=== PATIENT | female | born 1990 ===

== ENCOUNTER 2017-02-14 13:06 | Emergency (ER) | payer MEDICAID ==
[2017-02-14 13:15] VITALS: BP 103/79; PULSE 78; RESP 18; TEMP 98.6; O2SAT 100
--- NOTE | 2017-02-14 14:14 | ED PDOC ---
HPI: Female Pain Time Seen by Provider: 02/14/17 14:04 Chief Complaint (Nursing): Female Genitourinary Chief Complaint (Provider): with bleeding History Per: Patient Additional Complaint(s): 26-year-old female presents to emergency department with vaginal bleeding and lower abdominal pain. Patient went to PMD 1 week ago and was told that her urine test was positive. She noticed bleeding and cramping as of yesterday. Patient denies fever or chills, no nausea, vomiting, diarrhea or constipation. Patient states this is her 2nd and she has 1 child. She has no history of previous ectopic pregnancies or miscarriages. Past Medical History Reviewed: Historical Data, Nursing Documentation, Vital Signs Vital Signs: Last Vital Signs Temp 98.6 F 02/14/17 13:10 Pulse 78 02/14/17 13:10 Resp 18 02/14/17 13:10 BP 103/79 02/14/17 13:10 Pulse Ox 100 02/14/17 13:10 - Medical History PMH: Asthma - Surgical History Surgical History: No Surg Hx - Family History Family History: States: No Known Family Hx - Living Arrangements Living Arrangements: With Family - Social History Current smoker - smoking cessation education provided: Yes (occasionally) Alcohol: None Drugs: Denies - Home Medications Home Medications: Ambulatory Orders Medication Instructions Recorded Proventil 11/28/13 Aluminum Hydroxide/Magnesium H 30 ml PO TID 5 Days 02/12/16 [Maalox 30 ml] Famotidine [Pepcid] 20 mg PO BID #30 tab 02/12/16 Sucralfate [Carafate] 1 gm PO TID #30 dose 02/12/16 Clindamycin [Cleocin] 300 mg PO TID #30 cap 06/23/16 Naproxen [Naprosyn] 500 mg PO Q12H #20 tab 06/23/16 - Allergies Allergies/Adverse Reactions: Allergies Allergy/AdvReac Type Severity Reaction Status Date / Time No Known Allergies Allergy Unverified 11/28/13 23:19 Review of Systems ROS Statement: Except As Marked, All Systems Reviewed And Found Negative Constitutional: Negative for: Fever Respiratory: Negative for: Cough Gastrointestinal: Negative for: Nausea, Vomiting Genitourinary Female: Positive for: Vaginal Bleeding, Pelvic Pain, Other ( patient was told by PMD that she is during visit a few days ago ). Negative for: Dysuria, Frequency, Incontinence, Hematuria Physical Exam - Reviewed Nursing Documentation Reviewed: Yes Vital Signs Reviewed: Yes - Physical Exam Appears: Positive for: Well, Non-toxic, No Acute Distress Skin: Negative for: Rash Eye Exam: Positive for: Normal appearance Cardiovascular/Chest: Positive for: Regular Rate, Rhythm Respiratory: Positive for: Normal Breath Sounds Gastrointestinal/Abdominal: Positive for: Normal Exam, Soft. Negative for: Tenderness, Distended, Guarding, Rebound Neurologic/Psych: Positive for: Alert, Oriented - Laboratory Results Urine POC: Negative - ECG O2 Sat by Pulse Oximetry: 100 Pulse Ox Interpretation: Normal Medical Decision Making Medical Decision Makin26 year old with lower abdominal pain and vaginal bleeding, ? test in ED is negative. Plan: Serum beta Serum beta is negative. Patient was referred to women's clinic for follow up. Disposition - Clinical Impression Clinical Impression: Menstruation - Patient ED Disposition Is Patient to be Admitted: No Counseled Patient/Family Regarding: Diagnosis, Need For Followup - Disposition Referrals: [facility] [Outside] Disposition: Routine/Home Disposition Time: 15:55 Condition: STABLE Additional Instructions: Follow up with women's clinic. Instructions: Menstruation (ED)
== END 2017-02-14 15:58 | disposition home or self-care (01) ==
LOC: H.ER 13:06
DX: N92.6 Irregular menstruation, unspecified (principal); F17.200 Nicotine dependence, unspecified, uncomplicated; J45.909 Unspecified asthma, uncomplicated

== ENCOUNTER 2018-04-21 22:58 | Emergency (ER) | payer MEDICAID ==
[2018-04-21 23:48] VITALS: BP 121/60; PULSE 71; RESP 16; TEMP 98.1; O2SAT 100
--- NOTE | 2018-04-22 00:36 | ED PDOC ---
HPI: Abdomen Time Seen by Provider: 04/22/18 00:15 Chief Complaint (Nursing): Abdominal Pain Chief Complaint (Provider): abdominal pain History Per: Patient History/Exam Limitations: no limitations Onset/Duration Of Symptoms: Days (3), Waxing/Waning Current Symptoms Are (Timing): Still Present Location Of Pain/Discomfort: RLQ, LLQ, Suprapubic Quality Of Discomfort: Sharp, Stabbing, "Pain" Associated Symptoms: denies: Fever, Chills, Nausea, Vomiting Additional Complaint(s): 28 y/o female presents for evaluation of intermittent diffuse lower abdominal pain x 3 days. Associated abdominal bloating. Denies fever, nausea/vomiting , chest pain, shortness of breath, palpitations, urinary symptoms, changes in bowel movements. Little improvement with ibuprofen 800mg. Against Medical Advice - AMA Patient Left Against Medical Advice: The patient declines admission to the hospital and wishes to leave the Emergency Department. This action is against my medical advice. This decision was made with informed refusal. The patient was told that admission to the hospital is necessary. Explanation of the reasons why were discussed. The risks of leaving were explained to the patient and include, but are not limited to, worsening of known or currently unknown conditions, permanent disability and from undiagnosed or untreated conditions. The patient has the capacity to make this informed decision and understands my explanation of the current medical problem and risks of leaving. The patient voluntarily accepts these risks and signed an AMA form documenting our conversation. The patient was given the opportunity to ask questions and reconsider. The patient was encouraged to return to the Emergency Department at any time for further care. Past Medical History Reviewed: Historical Data, Nursing Documentation, Vital Signs Vital Signs: Last Vital Signs Temp 98.1 F 04/21/18 23:46 Pulse 71 04/21/18 23:46 Resp 16 04/21/18 23:46 BP 121/60 04/21/18 23:46 Pulse Ox 100 04/22/18 00:37 - Medical History PMH: Asthma - Surgical History Surgical History: No Surg Hx - Family History Family History: States: Unknown Family Hx - Living Arrangements Living Arrangements: With Family - Immunization History Hx Tetanus Toxoid Vaccination: No Hx Influenza Vaccination: No Hx Pneumococcal Vaccination: No - Home Medications Home Medications: Ambulatory Orders Medication Instructions Recorded Proventil 11/28/13 Aluminum Hydroxide/Magnesium H 30 ml PO TID 5 Days ml 02/12/16 [Maalox 30 ml] Famotidine [Pepcid] 20 mg PO BID #30 tab 02/12/16 Sucralfate [Carafate] 1 gm PO TID #30 dose 02/12/16 Clindamycin [Cleocin] 300 mg PO TID #30 cap 06/23/16 Naproxen [Naprosyn] 500 mg PO Q12H #20 tab 06/23/16 - Allergies Allergies/Adverse Reactions: Allergies Allergy/AdvReac Type Severity Reaction Status Date / Time latex Allergy SHORTNESS Verified 04/21/18 23:46 OF BREATH Review of Systems ROS Statement: Except As Marked, All Systems Reviewed And Found Negative Gastrointestinal: Positive for: Abdominal Pain Physical Exam - Reviewed Nursing Documentation Reviewed: Yes Vital Signs Reviewed: Yes - Physical Exam Appears: Positive for: Well, Non-toxic, No Acute Distress Head Exam: Positive for: ATRAUMATIC, NORMAL INSPECTION, NORMOCEPHALIC Skin: Positive for: Normal Color Eye Exam: Positive for: Normal appearance ENT: Positive for: Normal ENT Inspection Cardiovascular/Chest: Positive for: Regular Rate, Rhythm Respiratory: Positive for: Normal Breath Sounds Gastrointestinal/Abdominal: Positive for: Bowel Sounds (hypoactive), Soft, Tenderness (diffuse lower discomfort to deep palpation), Distended Back: Positive for: Normal Inspection Extremity: Positive for: Normal ROM Neurologic/Psych: Positive for: Alert, Oriented - Laboratory Results Urine POC: Negative Urine dip results: Negative for: Leukocyte Esterase, Blood, Nitrate, Ketones - ECG O2 Sat by Pulse Oximetry: 100 - Progress ED Course And Treament: Patient declines labs/imaging; states she needs to go home and sleep before work. Patient advised she will need to sign out against medical advice, and risks of doing so. Patient demonstrates full competency in making medical decisions and still wishes to sign out after risks explained. Patient was instructed to follow up with her primary care physician DANIKA and return to ED immediately for worsening/concerning symptoms. Disposition - Clinical Impression Clinical Impression: Abdominal pain, Left against medical advice - Disposition Disposition Time: 00:36 Condition: STABLE Instructions: Acute Abdomen (Belly Pain), Adult (DC), Leaving Against Medical Advice Forms: [employer] [place] (Persian)
== END 2018-04-22 00:52 | disposition left against medical advice (07) ==
LOC: H.ER 22:58
DX: R10.9 Unspecified abdominal pain (principal); J45.909 Unspecified asthma, uncomplicated

== ENCOUNTER 2019-01-21 09:27 | Emergency (ER) | payer MEDICAID ==
[2019-01-21 09:38] VITALS: BP 115/63; PULSE 87; RESP 16; TEMP 97.3; O2SAT 100; BMI 26.2
[2019-01-21] MEDS ORDERED: Sodium Chloride 0.9% 1,000 ML IV STA (10:28)
--- NOTE | 2019-01-21 10:38 | ED PDOC ---
HPI:Nausea, Vomiting, Diarrhea Time Seen by Provider: 01/21/19 09:56 Chief Complaint (Nursing): Flu-like Symptoms History Per: Patient History/Exam Limitations: no limitations Onset/Duration Of Symptoms: Days (5) Have you had recent travel within the past 21 days to any of the following countries: [place], [place], [place] or [place]?: No Severity: Moderate Pain Scale Rating Of: 4 Quality Of Discomfort: Sharp Associated Symptoms: Fever, Nausea, Vomiting, Diarrhea Exacerbating Factors: None Alleviating Factors: None Last Bowel Movement: Today Additional History Per: Patient Additional Complaint(s): Patient presenting with left pelvic pain for 5 days. Pain is intermittent. Patient report vomiting for 2 months since she was . She counts 5 weeks. Her LMP was Nov 26. Reports non bloody vomiting and watery diarrhea for 1 day. She reports fever yesterday. No vaginal bleeding. No previous US for . She is Abnormal Vaginal Bleeding: No Past Medical History Reviewed: Historical Data, Nursing Documentation, Vital Signs Vital Signs: Last Vital Signs Temp 97.3 F L 01/21/19 09:37 Pulse 87 01/21/19 09:37 Resp 16 01/21/19 09:37 BP 115/63 01/21/19 09:37 Pulse Ox 100 01/21/19 09:37 - Medical History PMH: Asthma - Surgical History Surgical History: No Surg Hx - Family History Family History: States: Unknown Family Hx - Immunization History Hx Tetanus Toxoid Vaccination: No Hx Influenza Vaccination: No Hx Pneumococcal Vaccination: No - Home Medications Home Medications: Ambulatory Orders Medication Instructions Recorded Proventil 11/28/13 Aluminum Hydroxide/Magnesium H 30 ml PO TID 5 Days ml 02/12/16 [Maalox 30 ml] Famotidine [Pepcid] 20 mg PO BID #30 tab 02/12/16 Sucralfate [Carafate] 1 gm PO TID #30 dose 02/12/16 Clindamycin [Cleocin] 300 mg PO TID #30 cap 06/23/16 Naproxen [Naprosyn] 500 mg PO Q12H #20 tab 06/23/16 Ondansetron ODT [Zofran ODT] 4 mg PO Q8 PRN #12 odt 01/21/19 - Allergies Allergies/Adverse Reactions: Allergies Allergy/AdvReac Type Severity Reaction Status Date / Time latex Allergy SHORTNESS Verified 04/21/18 23:46 OF BREATH Review of Systems ROS Statement: Except As Marked, All Systems Reviewed And Found Negative Physical Exam - Reviewed Nursing Documentation Reviewed: Yes Vital Signs Reviewed: Yes - Physical Exam Appears: Positive for: Non-toxic, No Acute Distress Head Exam: Positive for: ATRAUMATIC, NORMAL INSPECTION Skin: Positive for: Normal Color, Warm Eye Exam: Positive for: EOMI Neck: Positive for: Painless ROM Cardiovascular/Chest: Positive for: Regular Rate, Rhythm Respiratory: Positive for: Normal Breath Sounds Gastrointestinal/Abdominal: Positive for: Soft, Tenderness (left pelvic ). Negative for: Distended, Guarding Extremity: Positive for: Normal ROM Neurological/Psych: Positive for: Awake, Alert, Oriented - Laboratory Results Result Diagrams: 01/21/19 10:00 01/21/19 10:00 - ECG O2 Sat by Pulse Oximetry: 100 - Progress Re-evaluation Time: 14:00 Condition: Re-examined, Improved Medical Decision Making Medical Decision Making: Impression Left pelvic pain, vomiting and diarrhea Diff include complications including ectopic and miscarriage. Acute gastroenteritis, and induced emesis. R/o influenza. Plan Labs Udip OB US IVF Zofran reassess [id number] UTERUS: Gestational sac: 20 mm equal to 6 weeks 4 days gestational age [place]-rump length 9 mm equal to 6 weeks 6 days gestational age Heart rate: 128 bpm. age (Ultrasound estimated): 6 weeks 5 days [place]-gestational hemorrhage: There is a small subchorionic hemorrhage measuring 0.5 x 1.0 x 1.7 cm. Date of delivery (Ultrasound estimated) : 09/11/2019 3 mm yolk sac visualized Uterus measures 10.9 x 7.0 x 6.2 cm. Normal in size and appearance. CERVIX: Measures 3.9 cm. Long and closed. No cervical abnormality seen. RIGHT OVARY: Measures 2.9 x 1.8 x 1.9 cm. No mass lesion. Normal flow. LEFT OVARY: Measures 3.1 x 2.8 x 2.4 cm. No solid mass. Normal flow. Corpus luteum, 1.7 x 1.8 x 2.4 cm. FREE FLUID: None. OTHER FINDINGS: None. IMPRESSION: Single live intrauterine gestation of approximately 6 weeks 5 days gestational age. Small subchorionic hemorrhage. heart rate 128 beats per minute. Cervix long and closed. Disposition - Clinical Impression Clinical Impression: Vomiting and diarrhea, Subchorionic hematoma, Abdominal pain - Patient ED Disposition Is Patient to be Admitted: No Doctor Will See Patient In The: Office Counseled Patient/Family Regarding: Studies Performed, Diagnosis, Need For Followup - Disposition Referrals: [facility] [Outside] Disposition: Routine/Home Disposition Time: 14:15 Condition: GOOD Additional Instructions: TOMÁS UNDERWOOD, thank you for letting us take care of you today. Your provider was Dewayne Tripp MD and you were treated for 5 WKS PREG: ABD PAIN. The emergency medical care you received today was directed at your acute symptoms. If you were prescribed any medication, please fill it and take as directed. It may take several days for your symptoms to resolve. Return to the Emergency Department if your symptoms worsen, do not improve, or if you have any other problems. Please contact your doctor or call one of the physicians/clinics you have been referred to that are listed on the Patient Visit Information form that is included in your discharge packet. Bring any paperwork you were given at discharge with you along with any medications you are taking to your follow up visit. Our treatment cannot replace ongoing medical care by a primary care provider outside of the emergency department. Thank you for allowing the [facility] team to be part of your care today. If you had an X-Ray or CT scan: A Radiologist will review the ED reading if any change in treatment is needed we will contact you. Prescriptions: Ondansetron ODT [Zofran ODT] 4 mg PO Q8 PRN #12 odt PRN Reason: Nausea/Vomiting Instructions: Diarrhea in Adolescents and Adults, Threatened Miscarriage (DC)
[2019-01-21 10:54] LABS: BASO % 0.3 % (0.0-2.0); EOS # 0.1 K/uL (0.0-0.7); EOS % 1.1 % (0.0-4.0); HEMOGLOBIN 12.9 g/dL (12.0-16.0); LYMPH # 1.3 K/uL (1.0-4.3); LYMPH % 16.1 % (20.0-40.0); MEAN CELL VOLUME 86.6 fl (81.0-99.0); MEAN CORPUSCULAR HEMOGLOBIN 28.5 pg (27.0-31.0); MEAN CORPUSCULAR HGB CONC 32.9 g/dL (33.0-37.0); MEAN PLATELET VOLUME 9.3 fl (7.2-11.7); MONO # 0.6 K/uL (0.0-0.8); MONO % 8.2 % (0.0-10.0); NEUT # 5.8 K/uL (1.8-7.0); NEUT % 74.3 % (50.0-75.0); RBC 4.54 Mil/uL (3.80-5.20); RED CELL DISTRIBUTION WIDTH 14.4 % (11.5-14.5); WHITE BLOOD COUNT 7.8 K/uL (4.8-10.8)
[2019-01-21 11:04] LABS: ALB/GLOB RATIO 1.4 (1.0-2.1); ALBUMIN 4.4 g/dL (3.5-5.0); ALT/SGPT 23 U/L (9-52); AST/SGOT 21 U/L (14-36); BLOOD UREA NITROGEN 8 mg/dl (7-17); CALCIUM 9.3 mg/dL (8.4-10.2); GFR NON-AFRICAN AMERICAN > 60; LIPASE 60 U/L (23-300)
--- NOTE | 2019-01-21 11:53 | US ---
Date of service: 01/21/2019 PROCEDURE: OB Pelvic Ultrasound HISTORY: left pelvic pain 12/04/2018 COMPARISON: Not available FINDINGS: UTERUS: Gestational sac: 20 mm equal to 6 weeks 4 days gestational age [place]-rump length 9 mm equal to 6 weeks 6 days gestational age Heart rate: 128 bpm. age (Ultrasound estimated): 6 weeks 5 days [place]-gestational hemorrhage: There is a small subchorionic hemorrhage measuring 0.5 x 1.0 x 1.7 cm. Date of delivery (Ultrasound estimated) : 09/11/2019 3 mm yolk sac visualized Uterus measures 10.9 x 7.0 x 6.2 cm. Normal in size and appearance. CERVIX: Measures 3.9 cm. Long and closed. No cervical abnormality seen. RIGHT OVARY: Measures 2.9 x 1.8 x 1.9 cm. No mass lesion. Normal flow. LEFT OVARY: Measures 3.1 x 2.8 x 2.4 cm. No solid mass. Normal flow. Corpus luteum, 1.7 x 1.8 x 2.4 cm. FREE FLUID: None. OTHER FINDINGS: None. IMPRESSION: Single live intrauterine gestation of approximately 6 weeks 5 days gestational age. Small subchorionic hemorrhage. heart rate 128 beats per minute. Cervix long and closed.
== END 2019-01-21 14:24 | disposition home or self-care (01) ==
LOC: H.ER 09:27
DX: R10.9 Unspecified abdominal pain (principal); R19.7 Diarrhea, unspecified; O20.8 Other hemorrhage in early pregnancy; O21.9 Vomiting of pregnancy, unspecified; O26.891 Other specified pregnancy related conditions, first trimester; Z3A.01 Less than 8 weeks gestation of pregnancy
CPT/HCPCS: 76817; 80053; 81025; 83690; 85025; 87804; 96374; 99283; J2405; J7030